=== PATIENT | male | born 1960 | race Caucasian/White ===

== ENCOUNTER 2022-11-03 17:08 | Emergency (ER) | payer OTHER ==
[~2022-11-03] VITALS: Ht 172.7 cm; Wt 70.3 kg
[2022-11-03] MEDS ORDERED: oxyCODONE/APAP (5/325 MG) 1 UDTAB TABLET ONE (19:26)
[2022-11-03] MEDS ORDERED: oxyCODONE/APAP (5/325 MG) 1 UDTAB TABLET PO ONE (19:30)
--- NOTE | 2022-11-03 19:31 | NUR ---
XR AT BEDSIDE
--- NOTE | 2022-11-03 19:32 | NUR ---
RECEIVED REPORT FROM AKOSUA FONTAINE FOR KENDRA. PT [id number] AT APPROX [id number] FOR RIGHT HIP PAIN X 3 DAYS S/P RIGHT HIP REPLACEMENT ON October. PT PICKED UP FROM [facility]. PT [id number], IN NAD, VITALS CHECKED.
--- NOTE | 2022-11-03 20:00 | NUR ---
U/S TECH AT BEDSIDE
--- NOTE | 2022-11-03 20:23 | NUR ---
PT WILL BE TRANSPORTED VIA [facility] IN 2 HOURS BACK TO FACILITY
--- NOTE | 2022-11-03 21:42 | NUR ---
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
--- NOTE | 2022-11-03 23:58 | NUR ---
REPORT GIVEN TO [facility] / [facility] TRANSPORT [id number].
[2022-11-04 00:04] VITALS: BP 119/65
--- NOTE | 2022-11-04 00:05 | NUR ---
Patient discharged to home in stable condition. Written and verbal after care instructions given. Patient verbalizes understanding of instruction.
== END 2022-11-04 00:05 ==
LOC: ER 17:11
DX: G89.18 Other acute postprocedural pain (principal); M25.551 Pain in right hip; I12.9 Hypertensive chronic kidney disease with stage 1 through stage 4 chronic kidney disease, or unspecified chronic kidney disease; N18.9 Chronic kidney disease, unspecified
CPT/HCPCS: 73502; 93971-TC